=== PATIENT | male | born 1960 | race Caucasian/White ===

== ENCOUNTER 2021-07-26 07:21 | Outpatient (CLI) | payer BC, SELFPAY ==
--- NOTE | 2021-08-08 17:02 | WPDSLEEPSTUD ---
Sleep Study Date of Study: 07/26/21 Ordering Provider: Aranza Gaspar PA-C Interpreting Physician: Sanjana Mckenna DO Sleep Study Type: CPAP Titration Height: 1.88 m Weight: 151.046 kg Body Mass Index: 42.7 Neck Circumference (inches): 21 [place]: 7 Reason for Sleep Study The patient had a PSG on 10/03/2015 that showed severe TOMER. He had a PAP Titration on 11/23/2015 where he ended up on 14 cm. The patient gained weight and is snoring with his CPAP. Sleep History The patient is a 61-year-old male with benign essential tremor, seasonal allergies, erectile dysfunction and TOMER on CPAP that had a Pap titration study ordered by his primary care. The patient occasionally awakens from sleep short of breath. He rarely awakens at night with heartburn, belching or cough. He frequently snores loud enough that others complain. He occasionally has trouble sleeping when he has a cold. He rarely wakes up gasping for air throughout the night. He rarely has breathing problems at night observed by himself or others. He denies sweating excessively at night. He denies having heart palpitations or irregular heartbeats during the night. He occasionally falls asleep during the day but never while driving. He denies sleep paralysis and cataplexy. He denies having trouble at school or work due to sleepiness. He occasionally experiences vivid dreamlike scenes upon awakening or falling asleep. He rarely has nightmares. He occasionally remembers his dreams. He frequently has thoughts racing through his mind. He denies feeling sad or depressed. He denies having anxiety. He occasionally has muscular tension. He occasionally notices parts of his body jerk. He rarely kicks during the night. He rarely has crawling and aching feelings in his legs. He rarely has leg pain during the night. He rarely grinds his teeth during sleep never awakens with morning jaw pain. He is frequently bothered by pain during the day and occasionally awakened by pain during the night. He occasionally wakes up feeling stiff in the morning. He occasionally wakes up with sore achy muscles. He occasionally wakes up with pain in the neck, spine and other joints. He goes to bed at 9:00 p.m. on weekdays and 11:00 p.m. on weekends. It takes him 30 minutes to fall asleep. He wakes up several times throughout the night to roll over. He is able to fall back asleep immediately. He typically wakes up between 6 and 7:00 a.m. on both weekdays and weekends. He typically gets hours of sleep per night. He will stay in bed for 5 minutes after waking up in the morning. He currently lives with his . He does not consume any caffeinated beverages within 2 hours of bedtime. He does not engage in physical exercise before bedtime. He will watch television before falling asleep. He does not take naps in afternoon or the evening. He will drink 2 cups of caffeinated tea per day. He will drink 1 alcoholic beverage per day. He denies tobacco use. He will rarely use recreational drugs. FORMERLY [facility] Past Medical History Medical History Erectile dysfunction Finger amputation, no complication (~1999) Lumbar disc disease TOMER (obstructive sleep apnea) Surgical History Surgical History History of knee replacement procedure of left knee (~2017) Status post trigger finger release (~2017) Family History Family History Mother Diabetes mellitus Cerebrovascular accident Grandparent Diabetes mellitus Heart disease Social History Social History Alcohol intake: current Drinks per week: 3 Alcohol use details: weekly Substance use: current Substance use type: marijuana Other substance usage details: once monthly, approx. Gender identity (if verbalized by the pat
[2021-08-08 17:18] VITALS: BMI 42.7
== END 2021-07-27 07:16 | disposition home or self-care (01) ==
LOC: ANHCSM 07:22
PROVIDERS: PCP Family Medicine; Visit Provider Physician Assistant
DX: G47.33 Obstructive sleep apnea (adult) (pediatric) (principal)
CPT/HCPCS: 95811

== ENCOUNTER 2022-03-21 12:41 | Outpatient (CLI) | payer BC, SELFPAY ==
--- NOTE | ~2022-03-21 | XR_ITS ---
EXAMINATION: XR chest 2V 03/21/2022 12:58 INDICATION: Left-sided chest pain PROCEDURE: 2 view chest COMPARISON: No prior studies for comparison. FINDINGS: The lungs are clear. The cardiomediastinal silhouette is within normal limits. There are no pleural effusions. There is no pneumothorax suspected. IMPRESSION: 1: NO ACUTE CARDIOPULMONARY DISEASE. Reviewed, dictated and finalized at location A. 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
--- NOTE | 2022-03-21 13:01 | ECG_ITS ---
Measurements Intervals [place] Rate: 58 P: 64 NV: 163 QRS: 14 QRSD: 133 T: 34 QT: 385 QTc: 378 Interpretive Statements SINUS BRADYCARDIA INCOMPLETE RIGHT BUNDLE BRANCH BLOCK NO PREVIOUS ECG AVAILABLE FOR COMPARISON Electronically Signed On 03-21-2022 15:13:37 [employer] by Shawna Strong M.D.
== END 2022-03-21 12:42 | disposition home or self-care (01) ==
LOC: ANHIMG 12:44
PROVIDERS: PCP Family Medicine; Visit Provider Physician Assistant
DX: R07.9 Chest pain, unspecified (principal); I45.10 Unspecified right bundle-branch block
CPT/HCPCS: 71046; 93005

== ENCOUNTER 2022-08-24 09:29 | Outpatient (CLI) | payer BC, SELFPAY ==
--- NOTE | ~2022-08-24 | XR_ITS ---
Bilateral Hands Technique: Bilateral PA, oblique, and lateral views, and ball-catcher's view, were obtained. Clinical History: Pain Findings: No acute fracture or dislocation is seen. There is prior amputation of the distal portion o f the right index finger versus congenital/omental abnormality. There is moderate osteoarthritic quevedo ge of the right third metacarpophalangeal joint. There is mild degenerative change of the left third metacarpophalangeal joint. Remaining joint spaces are intact Soft tissues are unremarkable. Impression: No acute fracture or dislocation. 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 Mild osteoarthritis at the left third MCP joint . Prior amputation of the distal index finger versus congenital abnormality. Correlate with relevant hi story. Reviewed, dictated and finalized at location . Impression: No acute fracture or dislocation. 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 Mild osteoarthritis at th e left third MCP joint. Prior amputation of the distal index finger versus congenital abnormality. Navid elate with relevant history.
== END 2022-08-24 09:30 | disposition home or self-care (01) ==
LOC: ANHIMG 09:35
PROVIDERS: PCP Family Medicine; Visit Provider Physician Assistant
DX: M19.041 Primary osteoarthritis, right hand (principal); M19.042 Primary osteoarthritis, left hand
CPT/HCPCS: 73130

== ENCOUNTER 2023-10-24 21:33 | Emergency (ER) | payer MEDICARE, SELFPAY ==
--- NOTE | ~2023-10-24 | US_ITS ---
EXAMINATION: US venous doppler [facility] DATE: 10/24/2023 22:13 INDICATION: Left lower limb pain. TECHNIQUE: Grayscale ultrasound images without and with compression and Doppler ultrasound images of the left lower extremity veins were obtained. COMPARISON: None. FINDINGS: The visualized portions of left common femoral vein, profunda (deep) femoral vein, femoral vein, popl iteal vein, posterior tibial veins, and greater saphenous vein outflow are patent. IMPRESSION: 1. No deep venous thrombosis. Reviewed, dictated and finalized at location E.
[2023-10-24 21:35] VITALS: BP 154/86; PULSE 108; RESP 17; TEMP 36.6; O2SAT 98
[2023-10-24 21:55] VITALS: BP 146/83; PULSE 99; RESP 16; O2SAT 95
--- NOTE | 2023-10-24 21:59 | PC.NURSE ---
US at bedside.
[2023-10-24 22:01] VITALS: BP 156/76; PULSE 100; RESP 19; O2SAT 97
[2023-10-24 22:01] LABS: Basophils Absolute Auto 0.1 K/mm3 (0.0-0.1); Basophils Percent Auto 0.8 % (0.2-1.2); Eosinophils Absolute Auto 0.2 K/mm3 (0-0.3); Eosinophils Percent Auto 1.8 % (0-4.4); Hematocrit 48.8 % (42.0-52.0); Hemoglobin 17.1 g/dL (14.0-18.0); Immature Granulocyte Absolute 0.05 K/mm3 (0.00-0.031); Immature Granulocyte Percent A 0.6 % (0-0.5); Lymphocytes Absolute Auto 2.19 K/mm3 (0.9-3.2); Lymphocytes Percent Auto 25.3 % (18.3-44.2); Mean Corpuscular Hemoglobin 31.4 pg (26-34); Mean Corpuscular Volume 89.7 fl (80-100); Mean Platelet Volume 9.2 fl (7.4-10.4); Monocytes Absolute Auto 0.6 K/mm3 (0.1-0.6); Monocytes Percent Auto 7.3 % (2.6-8.5); Neutrophils Absolute Auto 5.6 K/mm3 (1.3-6.7); Neutrophils Percent Auto 64.2 % (45.5-73.1); Platelet Count Result 246 k/mm3 (150-375); Red Blood Count 5.44 M/mm3 (4.6-6.20); Red Cell Distribution Width 12.7 % (11.5-14.5); White Blood Count 8.7 K/mm3 (4.5-10.0)
[2023-10-24 22:10] LABS: Anion Gap 10 mmol/L (4-12); Blood Urea Nitrogen 17 mg/dL (9-20); Carbon Dioxide 25 mmol/L (22-30); Chloride 102 mmol/L (98-107); Estimated CRCL calculation 92 ml/min; Estimated Glomerular Filt Rate > 60; Glucose 128 mg/dL (65-110); Potassium 3.8 mmol/L (3.4-5.0); Sodium 137 mmol/L (137-145)
[2023-10-24 22:12] LABS: INR 0.9; Prothrombin Time 12.7 Seconds (11.1-14.7)
[2023-10-24 22:13] LABS: Partial Thromboplastin Time 22.8 Seconds (22.3-36.8)
[2023-10-24 22:21] LABS: D Dimer 0.78 ug/mL (<0.48)
[2023-10-24 22:31] VITALS: BP 151/84; PULSE 93; RESP 21; O2SAT 96
[2023-10-24 22:46] VITALS: BP 148/70; PULSE 96; RESP 16; O2SAT 96
--- NOTE | 2023-10-24 22:47 | ED.GENADULT ---
HPI - General Adult General Chief complaint: Recheck/Abnormal Lab/Rx Stated complaint: left leg possible blood clot Time Seen by Provider: 10/24/23 22:25 History of Present Illness HPI narrative: Patient is a 63-year-old male who presents ER with redness the left lower extremity. Began around the medial posterior knee and now moves up to the mid thigh. There is erythema and warmth. Mild tenderness. Normal range of motion. Concerned there could be a blood clot. Symptoms occurred after being on a float trip where he had been sitting in an inner tube in a river. Related Data Home Medications Medication Instructions Recorded Confirmed aspirin 81 mg tablet,delayed 81 mg PO DAILY 03/21/22 04/01/23 release (Adult Aspirin Regimen) testosterone cypionate 200 mg/mL 100 mg IM WEEKLY 03/21/22 04/01/23 intramuscular kit naproxen 220 mg-diphenhydramine 25 1 tablet PO QPM 08/24/22 04/01/23 mg tablet (Aleve PM) Allergies Allergy/AdvReac Type Severity Reaction Status Date / Time No Known Allergies Allergy Verified 10/24/23 21:40 Review of Systems Review of Systems: All systems reviewed & are unremarkable except as noted in HPI and below Constitutional: Constitutional: Reports no additional constitutional complaints Cardiovascular: Cardiovascular: Reports no additional cardiovascular complaints Respiratory: Respiratory: Reports no additional respiratory complaints Gastrointestinal: Gastrointestinal: Reports no additional gastrointestinal complaints Integumentary/Breasts: Skin/Breast: Denies pruritus, Reports erythema, Reports rash and Denies skin ulcer PMFSH Past Medical History Medical History Erectile dysfunction Essential tremor Finger amputation, no complication (~1999) Lumbar disc disease TOMER (obstructive sleep apnea) Surgical History Surgical History History of knee replacement procedure of left knee (~2017) History of penile implant Status post trigger finger release (~2017) Family History Family History Mother Diabetes mellitus Cerebrovascular accident Grandparent Diabetes mellitus Heart disease Social History Social History (Updated 04/01/23 @ 07:53 by Danae Durham MA) Smoking status: Never smoker Alcohol intake: current Drinks per week: 3 Alcohol use details: weekly Substance use: current Substance use type: marijuana Other substance usage details: once monthly, approx. Do You Feel Safe in your Home?: Yes Lack of Transportation: No Lack of Food: Never True Current Housing: I Have Housing Concerned About Future Housing: No Difficulty Paying Gas/Electric Bills: No Difficulty Paying for Meds: YES Currently Unemployed: No Education: Decline to Answer Difficulty w/ Childcare or Family Care: No Living arrangements: with family Occupation/Education: occupation Gender identity (if verbalized by the patient): Male Spiritual care concerns: No Agree to blood products: Yes Exam Narrative: GENERAL: Well-appearing, well-nourished, and in no acute distress. HEAD: Normocephalic, atraumatic. ENT: Mucous membranes moist. CHEST: Clear to auscultation. No respiratory distress. HEART: Regular rate and rhythm. Normal peripheral pulses. EXTREMITIES: Normal range of motion. No edema. SKIN: Warm, dry. Cellulitis to the medial posterior left thigh and down for the lateral knee. No palpable cord. NEURO: Alert and oriented x3. PSYCH: Normal mood and affect. Course Course Emergency Course: Discussed lab and imaging results. Patient felt to have cellulitis. Will be started on oral antibiotics. Vital Signs Vital signs: Vital Signs Temperature 97.8 F 10/24/23 21:35 Pulse Rate 108 H 10/24/23 21:35 Respiratory Rate 17 10/24/23 21:35 Blood Pressure 154/8
[2023-10-24 23:07] VITALS: BP 148/70; PULSE 94; RESP 17; O2SAT 95
[2023-10-24] MEDS: cefuroxime axetiL 250 MG TABLET 500 MG PO (23:10)
== END 2023-10-24 23:14 | disposition home or self-care (01) ==
PROVIDERS: Emergency Provider Emergency Medicine; PCP Family Medicine
DX: L03.116 Cellulitis of left lower limb (principal); G47.33 Obstructive sleep apnea (adult) (pediatric); Z96.652 Presence of left artificial knee joint; Z89.029 Acquired absence of unspecified finger(s); Z79.82 Long term (current) use of aspirin
CPT/HCPCS: 36415; 80048; 85025; 85380; 85610; 85730; 93971; 99284; A9270